=== PATIENT | female | born 1935 | race Caucasian/White ===

== ENCOUNTER 2020-07-10 08:58 | Emergency (ER) | payer MEDICARE, OTHER ==
--- NOTE | 2020-07-10 09:27 | EDM.PDOC ---
ED HPI GENERAL MEDICAL PROBLEM - General Chief Complaint: ENT Problem Stated Complaint: EAR ACHE BOTH,THROAT HURTS Time Seen by Provider: 07/10/20 09:24 Source of Information: Reports: Patient History Limitations: Reports: No Limitations - History of Present Illness INITIAL COMMENTS - FREE TEXT/NARRATIVE: Presents with bilateral ear pain and sore throat x 1 week. Throat pain is worse with swallowing. Has a h/o GERD and hiatal hernia repair, patient states reflux symptoms are not worse than usual. Denies fevers, cough, sob, chest pain, N/V, or loss of taste or smell. Duration: Week(s): (1) Quality: Reports: Ache Severity: Mild - Related Data Allergies Allergy/AdvReac Type Severity Reaction Status Date / Time Sulfa (Sulfonamide Allergy Hives Verified 07/10/20 09:21 Antibiotics) tetanus and diphtheria Allergy Hives Verified 07/10/20 09:21 toxoids Home Meds: Home Meds Amoxicillin 500 mg PO TID #21 tab 07/10/20 [Rx] Furosemide [Lasix] 20 mg PO DAILY 07/10/20 [History] Losartan [Cozaar] 50 mg PO DAILY 07/10/20 [History] Omeprazole 20 mg PO DAILY 07/10/20 [History] Past Medical History Cardiovascular History: Reports: Hypertension Gastrointestinal History: Reports: GERD Social & Family History - Tobacco Use Tobacco Use Within Last Twelve Months: No - Alcohol Use Alcohol Use History: Yes Alcohol Use Frequency: Rarely ED ROS ENT - Review of Systems Review Of Systems: Comprehensive ROS is negative, except as noted in HPI. ED EXAM, ENT - Physical Exam Exam: See Below Exam Limited By: No Limitations General Appearance: Alert, WD/WN, No Apparent Distress Ears: Normal External Exam, Normal Canal, Hearing Grossly Normal, Normal TMs Nose: Normal Inspection Mouth/Throat: Normal Inspection, Normal Gums, Normal Lips, Normal Oropharynx Head: Atraumatic, Normocephalic Neck: Normal Inspection, Supple, Non-Tender. No: Lymphadenopathy (R), Lymphadenopathy (L) Respiratory/Chest: No Respiratory Distress GI/Abdominal: No Distention Extremities: Normal Range of Motion Neurological: Alert, Oriented, Normal Cognition Psychiatric: Normal Affect, Normal Mood Skin: Warm, Dry, Intact Course - Vital Signs Last Recorded V/S: Last Vital Signs Temp 36.2 C 10/17/20 09:15 Pulse 75 07/10/20 09:15 Resp 16 07/10/20 09:15 BP 187/83 H 07/10/20 09:15 Pulse Ox 99 07/10/20 09:15 - Orders/Labs/Meds Orders: Active Orders 24 hr Category Date Time Status CULTURE STREP A CONFIRMATION [RM] Stat Lab 07/10/20 09:25 Results STREP SCRN A RAPID W CULT CONF [RM] Stat Lab 07/10/20 09:25 Results Labs: Microbiology 07/10/20 09:25 Group A Streptococcus Rapid Screen - Final Throat NEGATIVE STREP A SCREEN REFERENCE RANGE: NEGATIVE Departure - Departure Time of Disposition: 10:24 Disposition: Home, Self-Care 01 Condition: Good Clinical Impression: Otalgia of both ears Pharyngitis Qualifiers: Pharyngitis/tonsillitis etiology: other specified organisms Qualified Code(s): J02.8 - Acute pharyngitis due to other specified organisms - Discharge Information *PRESCRIPTION DRUG MONITORING PROGRAM REVIEWED*: No *COPY OF PRESCRIPTION DRUG MONITORING REPORT IN PATIENT ROB: Not Applicable Prescriptions: Amoxicillin 500 mg PO TID #21 tab Instructions: Sore Throat, [id number], Earache, Adult Referrals: Zuleyka Barkley PA [Primary Care Provider] - Forms: ED Department Discharge Additional Instructions: Fill the Amoxicillin prescription at [facility] in [place] and take as directed. Take Tylenol as needed to control pain. Gargle with warm salt water. Follow up with your Primary Physician in 2-3 days if symptoms don't improve. Sepsis Event Note (ED) - Evaluation Sepsis Screening Result: No Definite Risk - Focused Exam Vital Signs: Vital Signs Temp Pulse Resp BP Pulse Ox 07/10/20 09:15 36.2 C 75 16 187/83 H 99 - My Orders Last 24 Hours: My Active Orders 07/10/20 09:25 CULTURE STREP A CONFIRMATION [RM] Stat STREP SCRN A RAPID W CULT CONF [RM] Stat - Assessment/Plan Last 24 Hours: My Active Orders 07/10/20 09:25 CULTURE STREP A CONFIRMATION [RM] Stat STREP SCRN A RAPID W CULT CONF [RM] Stat
== END 2020-07-10 10:32 | disposition home or self-care (01) ==
LOC: FB.ED 08:58
DX: J02.8 Acute pharyngitis due to other specified organisms (principal); H92.03 Otalgia, bilateral; K21.9 Gastro-esophageal reflux disease without esophagitis; I10 Essential (primary) hypertension; Z79.899 Other long term (current) drug therapy; Z88.2 Allergy status to sulfonamides; Z88.7 Allergy status to serum and vaccine
CPT/HCPCS: 87081; 87880-QW; 99283